=== PATIENT | female | born 1995 | race Caucasian/White ===

== ENCOUNTER → 2017-08-12 | Day surgery (SDC) | payer BC ==
[~2017-08-12] VITALS: Ht 162.5 cm; Wt 72.6 kg
[~2017-08-12] MED LIST: BENTYL10 MG PO; IMODIUM A-D2 M2 PO; PREDNISONE5 MG PO
[2017-08-12 07:25] VITALS: BP 124/79
[2017-08-12 08:23] VITALS: BP 99/50
[2017-08-12 08:40] VITALS: BP 98/52
[2017-08-12 08:55] VITALS: BP 106/56
== END ==
LOC: SDC 08-07 12:30
DX: K51.90 Ulcerative colitis, unspecified, without complications (principal); Z98.890 Other specified postprocedural states; Z79.899 Other long term (current) drug therapy

== ENCOUNTER → 2018-02-02 | Day surgery (SDC) | payer BC ==
[~2018-02-02] VITALS: Ht 162.5 cm; Wt 72.6 kg
[~2018-02-02] MED LIST changes: +COLAZAL750 M1 PO; +FLAGYL500 MG PO; +ROWASA 4 G4 GM/60 ML R
[2018-02-02 15:30] VITALS: BP 125/88
[2018-02-02 15:37] LABS: BASO % 0.2 % (0.0-1.0); HEMATOCRIT 38.4 % (37.0-47.0); HEMOGLOBIN 11.9 g/dl (12.0-16.0); LYMPH # 1.5 10*3/uL (1.3-4.4); LYMPH % 8.3 % (27.0-41.0); MEAN CELL VOLUME 82.9 fl (81.0-99.0); MEAN CORPUSCULAR HGB 25.7 pg (27.0-31.0); MEAN PLATELET VOLUME 9.8 fl (9.6-12.3); MONO # 0.3 10*3/uL (0.1-1.0); MONO % 1.7 % (3.0-9.0); NEUT # 16.4 10*3/uL (2.3-7.9); NEUT % 89.3 % (47.0-73.0); PLATELET COUNT AUTOMATED 385 10*3/uL (130-400); RED BLOOD COUNT 4.63 10*6/uL (4.10-5.10); RED CELL DISTRI WIDTH 14.8 % (0-14.5); WHITE BLOOD COUNT 18.3 10*3/uL (4.8-10.8)
[2018-02-02 15:47] LABS: ALBUMIN 3.6 gm/dl (3.1-4.5); ALKALINE PHOSPHATASE 84 U/L (45-117); BUN 12 mg/dl (7-24); CHLORIDE 102 mmol/L (98-107); CREATININE 0.97 mg/dL (0.55-1.02); POTASSIUM 4.1 mmol/L (3.5-5.1); SGOT/AST 4 IU/L (3-35); SGPT/ALT 14 U/L (12-78); SODIUM 139 mmol/L (136-145); TOTAL PROTEIN 8.1 gm/dL (6.4-8.2)
[2018-02-02 16:54] VITALS: BP 126/84
[2018-02-02 17:09] VITALS: BP 130/83
== END | disposition home or self-care (01) ==
LOC: SDC 04:07
DX: K51.20 Ulcerative (chronic) proctitis without complications (principal); K51.80 Other ulcerative colitis without complications; Z80.9 Family history of malignant neoplasm, unspecified; Z79.899 Other long term (current) drug therapy